=== PATIENT | female | born 1965 | race American Indian/Alaskan Native ===

== ENCOUNTER 2017-02-14 19:33 | Emergency (ER) | payer OTHER ==
[2017-02-14 20:06] VITALS: BP 156/64
[2017-02-14] MEDS ORDERED: VALIUM PO ONE (21:09)
[2017-02-14] MEDS ORDERED: TORADOL IM ONE (21:09)
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
== END 2017-02-14 22:58 | disposition home or self-care (01) ==
LOC: ED 19:33
DX: S13.4XXA Sprain of ligaments of cervical spine, initial encounter (principal); R07.89 Other chest pain; J45.909 Unspecified asthma, uncomplicated; V49.49XA Driver injured in collision with other motor vehicles in traffic accident, initial encounter; Y93.9 Activity, unspecified; Y92.9 Unspecified place or not applicable; Y99.9 Unspecified external cause status
CPT/HCPCS: 36415; 84484; 93005; 93010; 96372; 99283; J1885